=== PATIENT | female | born 1970 | race Caucasian/White ===

== ENCOUNTER 2016-07-29 00:01 | Outpatient (POV) | END 2016-07-29 00:02 | LOC: OUTPT 00:01 | PROVIDERS: ATTEND Otolaryngology | DX: H91.90 Unspecified hearing loss, unspecified ear (principal) | CPT/HCPCS: 92557; 92567 ==

== ENCOUNTER 2017-12-29 09:00 | Outpatient (RCR) ==
--- NOTE | 2017-12-16 12:01 | RS.OPPTEV2 ---
Date of Note: 12/15/17 Visit #: 1 Date of Evaluation: 12/15/17 Payer Source: Insurance Date of Onset/Injury/Change in Status: 10/18/17 Surgery Performed?: No Treatment Diagnosis: sprain of ACL L knee History of Condition/Mechanism of Injury:: pt injured L knee while hauling hay, heard a loud "pop" and states her knee cap slid inward. pt reports she had been wearing a brace, however MD stated to dc use of brace to strengthen quads. 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 She states according to xray/MRI B knees have no cartilage and L ACL is only a thread. MD states if PT does not work may need TKR. Treatment Side (optional): Left *Precautions: n/a Medical History Medical History: Arthritis Surgical History: Hysterectomy, Surgical History Comments:: breast reduction, tonsilectomy, Smoking Status: Former smoker Diagnostic Testing/Imaging:: xray and MRI at MD office. Hx Home Medications: meloxicam Patient's Goals: decrease knee pain, knee not to feel unstable Pain Assessment - Pain Description Pain Location: L knee Pain Description: Aching, Acute Pain Description: hard ache Current Pain Intensity: 3 Functional Outcome Measure LE Functional Scale: 22 (72%) - G Codes & Severity Modifier G Codes & Modifier: n/a Source of G Code score: n/a Observation - Observation Posture: Forward Head, Rounded Shoulders Handedness: Right Girth Measurement Lower: L ankle 26cm, knee 41 cm. R ankle 25cm, knee 41 cm Gait - Gait Pattern General Gait Pattern Observation: Antalgic Gait Gait Comments: pt amb with decreased step length, flexed posture with antalgic gait pt with slight genu valgus B knees. General Range of Motion: BUE WFL's. BLE hip WFL's, ankle WFL's see knee eval Muscle Strength: BUE 5/5. BLE hip flex 4+/5, ankle DF/PF 4+/5 - Left Knee ROM Left Knee Extension: -6 Left Knee Flexion: 110 Knee ROM Limitations: Soft Tissue Tightness, Muscle Weakness, Pain - Right Knee ROM Right Knee Extension: 0 Right Knee Flexion: 116 Knee ROM Limitations: Soft Tissue Tightness, Muscle Weakness - Left Knee Strength Left Knee Extension: 3- Fair- Left Knee Flexion: 3 Fair - Right Knee Strength Right Knee Extension: 3 Fair Right Knee Flexion: 3+ Fair+ - Special Tests Knee Anterior Drawer Test: Positive Left Patella Apprehension Test: Positive Left Palpation Palpation Findings: Tenderness Comments:: tenderness noted at distal patella Sensation - Sensation Right Upper Extremity: Intact/Normal Left Upper Extremity: Intact/Normal Right Lower Extremity: Intact/Normal Left Lower Extremity: Intact/Normal Balance - Sitting Balance Static Sitting Balance: Normal Dynamic Sitting Balance: Normal - Standing Balance Static Standing Balance: Good Dynamic Standing Balance: Good - Heat/Cryotherapy Treatment: Cryotherapy Comments:: L knee Interventions - Exercise/Activities/Manual Therapy Exercises/Activities: pt performed LLE QS, SLR, hip abd/add, LAQ x 10 reps. pt attempted SAQ, however had increased pain with ex. Kinesiotape applied L medial patella at 50% stretch Manual Therapy: n/a HOME EXERCISE PROGRAM: pt given written HEP including AP, QS, SLR, LAQ - Charges Timed Code Treatment Minutes: 52 Total Treatment Time: 61 Procedures billed for this date of service:: elliot hobbs, cold pack EVALUATION COMPLEXITY LEVEL EVALUATION COMPLEXITY LEVEL: HISTORY: Low, EXAM OF BODY SYSTEMS: Medium (ROM, strength, gait, transfer), CLINICAL PRESENTATION: Medium (evolving), CLINICAL DECISION MAKING: Low Assessment Assessment: pt presents with decreased L knee ROM, strength as well as pain L knee. Hypermobility in patella medially. pt with evidence of ACL injury with + ant drawer test. Feel pt would benefit from skilled PT for therex for LE strengthening, ROM, as all as improved gait sequencing. Patient Education: Home Exercise Program, Education of Plan of Care Rehab Potential: Good Short Term Goals Goal #1: Improve L knee ext 0 Goal to be met by: 12/22/17 Goal #2: pt independent with kinesiotaping to L knee for patellar tracking Goal to be met by: 12/22/17 Goal #3: pt with improve strength L knee flex/ext 4/5 Goal to be met by: 12/22/17 Retirement Goals Goal #1: pt with improved L knee ROM WFL's Goal to be met by: 12/31/17 Goal #2: pt with no reports of feeling that knee will "give out" Goal to be met by: 12/31/17 Goal #3: pt rate pain < 2/10 with activity Goal to be met by: 12/31/17 Goal #4: pt amb community distances with improved sequencing Goal to be met by: 12/31/17 Plan - Treatment to be Provided Procedures: Therapeutic Exercises, Therapeutic Activity, Gait Training, Splinting/Taping, Patient Education Modalities: Electrical Stimulation, Ultrasound/Phonophoresis, Cryotherapy, Hot Packs Other:: pt with limited number of visits allowed by insurance, pt afraid of running out of visits for TKR if it comes to that, plan to see pt 2 w2 - Treatment Plan Frequency: 2 X week Duration: 2 weeks ORDER # VISITS AND/OR THROUGH DATE: 12/31/17 - Treatment Code (1) Left knee pain Code(s): M25.562 - PAIN IN LEFT KNEE (3) Muscle weakness Code(s): M62.81 - MUSCLE WEAKNESS (GENERALIZED)
--- NOTE | 2017-12-17 10:08 | RS.OPPTDN ---
Subjective Date of Note: 12/17/17 Visit #: 2 Date of Evaluation: 12/15/17 Payer Source: Insurance Treatment Diagnosis: sprain of ACL L knee Current Subjective/complaints:: Patient reports working on HEP as instructed, but increased left knee pain with SAQ. Reports kinesio-taping seems to have helped with pain. *Precautions: n/a Pain Assessment - Pain Description Pain Location: Left knee, right knee Current Pain Intensity: mild to mod Other Comments regarding Pain:: Pain increases with activity. She also has right knee pain from old injury. Interventions - Exercise/Activities/Manual Therapy Exercises/Activities: Quad sets and ankle pumps. Red theraband for resistive hip abd and hip add with knee in full extension. Red theraband for resistive left ankle df. SLR and SLR/VMO. Isometric hip add in hook-lying and isometric ankle inversion with knees in extension, both with small ball. Advised patient to hold SAQ. Standing resisted hip add and hip abd with resisted red theraband. All 2s/10reps each. Kinesiotape applied by PT to left medial patella at approx 80% stretch. Patient education of dx, joint mechanics, safety, HEP and need to perform bilaterally. Patient given copy of HEP and red theraband. Total minutes of Exercise: 48mins Manual Therapy: n/a HOME EXERCISE PROGRAM: pt given written HEP including AP, QS, SLR, LAQ. Hold LAQ. SLR/VMO. Red theraband for hip add and abd in standing. Isometric hip add and isometric ankle inversion. - Objective Findings Observations,measurements,etc.: Left knee extension to neurtal with gentle stretch, flexion to approx 120 degrees. - Charges Timed Code Treatment Minutes: 48mins Total Treatment Time: 48mins Procedures billed for this date of service:: EX3 Assessment: Patient motivated to progress with exercise. Patient Education: Education of diagnosis, Body/Joint mechanics, Home Exercise Program, Home Safety, Activity Modification Patient demonstrates compliance with HEP?: Yes Short Term Goals Goal #1: Improve L knee ext 0 Goal to be met by: 12/22/17 Progress towards Goal:: Progressing Comments:: Left knee extension to neutral with gentle stretch. 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
--- NOTE | 2017-12-22 11:05 | RS.OPPTDN ---
Subjective Date of Note: 12/22/17 Visit #: 3 Date of Evaluation: 12/15/17 Payer Source: Insurance Treatment Diagnosis: sprain of ACL L knee Current Subjective/complaints:: Patient reports some decrease in left knee pain. States she is working on HEP and using kinesio-tape. Reports a reduction in pain with SAQ in department. *Precautions: n/a Pain Assessment - Pain Description Pain Location: Left knee joint Current Pain Intensity: mild Worst Pain Intensity: increases to mod with activity Other Comments regarding Pain:: Reports only mild discomfort at the distal left patella tendon following 10reps of SAQ. Interventions - Exercise/Activities/Manual Therapy Exercises/Activities: Assisted stretching of the hamstrings and heel cords. Quad sets and ankle pumps. Started hamstring sets. Red theraband for resistive hip abd and hip add with knee in full extension. Green theraband for resistive left ankle df and hamstring curls. Added 2# to SLR 3s/10reps. SLR/VMO and SLR with IR for vastus lateralis. Isometric hip add in hook-lying and isometric ankle inversion with knees in extension, both with small ball. Advised patient to hold SAQ. Patient given green theraband for progression of standing resisted hip add and hip abd at home. Continued patient education of dx, joint mechanics , safety, and HEP. Total minutes of Exercise: 32mins Manual Therapy: n/a HOME EXERCISE PROGRAM: pt given written HEP including AP, QS, SLR, LAQ. Hold LAQ. SLR/VMO. Red theraband for hip add and abd in standing. Isometric hip add and isometric ankle inversion. - Charges Timed Code Treatment Minutes: 32mins Total Treatment Time: 35mins Procedures billed for this date of service:: EX2 Assessment: Patient responding with reports of reduction in left knee pain. Patient appears to be consistently working on HEP and using kinesio-tape. Patient Education: Education of diagnosis, Body/Joint mechanics, Home Exercise Program Comments: Patient education of joint mechanics and safety with daily and recreational activities. Patient demonstrates compliance with HEP?: Yes Short Term Goals Goal #1: Improve L knee ext 0 Goal to be met by: 12/22/17 Progress towards Goal:: Met Goal #2: pt independent with kinesiotaping to L knee for patellar tracking Goal to be met by: 12/22/17 Progress towards Goal:: Partially Met Goal #3: pt with improve strength L knee flex/ext 4/5 Goal to be met by: 12/22/17 Progress towards Goal:: Partially Met Comments:: Left knee extension 4/5 consistently Residential Goals Goal #1: pt with improved L knee ROM WFL's Goal to be met by: 12/31/17 Progress towards goal: Met Goal #2: pt with no reports of feeling that knee will "give out" Goal to be met by: 12/31/17 Progress towards goal: Progressing Goal #3: pt rate pain < 2/10 with activity Goal to be met by: 12/31/17 Progress towards goal: Progressing Goal #4: pt amb community distances with improved sequencing Goal to be met by: 12/31/17 Progress towards goal: Progressing Plan PLAN OF CARE EXPIRES ON:: 12/31/17 ORDER # VISITS AND/OR THROUGH DATE: 12/31/17 PLAN: Progress strengthening and joint stability exercise to increase patients functional activity level.
--- NOTE | 2017-12-25 15:38 | RS.OPPTDN ---
Subjective Date of Note: 12/25/17 Visit #: 4 Date of Evaluation: 12/15/17 Payer Source: Insurance Treatment Diagnosis: sprain of ACL L knee Current Subjective/complaints:: Patient reports improvement in left knee pain and stability. She still cannot squat or kneel on left knee due to pain. She reports no increased pain with resistive SAQ today. *Precautions: n/a Pain Assessment - Pain Description Pain Location: Left knee Pain Description: Tightness, Aching Current Pain Intensity: mild to mod Interventions - Exercise/Activities/Manual Therapy Exercises/Activities: Assisted stretching of the hamstrings and heel cords. Quad sets and hamstring sets. Red theraband for resistive hip abd and hip add with knee in full extension. Green theraband for resistive left ankle df and hamstring curls. Performs SAQ with 3#, 2s/10reps and no increased pain. Added 2 # to SLR, SLR/VMO, and SLR with IR for vastus lateralis, 4s/5reps each. Isometric hip add in hook-lying and isometric ankle inversion with knees in extension, both with small ball. Continued patient education of dx, joint mechanics, safety, and HEP. Patient education on postions to relieve pain with squatting at work, and to use foam pad and stool for pressure relief. Total minutes of Exercise: 42mins Manual Therapy: n/a HOME EXERCISE PROGRAM: pt given written HEP including AP, QS, SLR, LAQ. Hold LAQ. SLR/VMO. Red theraband for hip add and abd in standing. Isometric hip add and isometric ankle inversion. - Charges Timed Code Treatment Minutes: 42mins Total Treatment Time: 44mins Procedures billed for this date of service:: EX3 Assessment: Patient continues to report improvement in pain and consistency in HEP. Patient Education: Body/Joint mechanics, Home Exercise Program, Home Safety, Activity Modification Patient demonstrates compliance with HEP?: Yes Short Term Goals Goal #1: Improve L knee ext 0 Goal to be met by: 12/22/17 Progress towards Goal:: Met Goal #2: pt independent with kinesiotaping to L knee for patellar tracking Goal to be met by: 12/22/17 Progress towards Goal:: Met Goal #3: pt with improve strength L knee flex/ext 4/5 Goal to be met by: 12/22/17 Progress towards Goal:: Partially Met Valve Repairer Reclamation Goals Goal #1: pt with improved L knee ROM WFL's Goal to be met by: 12/31/17 Progress towards goal: Met Goal #2: pt with no reports of feeling that knee will "give out" Goal to be met by: 12/31/17 Progress towards goal: Progressing Goal #3: pt rate pain < 2/10 with activity Goal to be met by: 12/31/17 Progress towards goal: Progressing Goal #4: pt amb community distances with improved sequencing Goal to be met by: 12/31/17 Progress towards goal: Progressing Plan PLAN OF CARE EXPIRES ON:: 12/31/17 ORDER # VISITS AND/OR THROUGH DATE: 12/31/17 PLAN: Continue next week to progress strengthening and stability exercise to reduce pain and increase patients ability to perform functional activities.
--- NOTE | 2017-12-29 10:20 | RS.OPPTDN ---
Subjective Date of Note: 12/29/17 Visit #: 5 Date of Evaluation: 12/15/17 Payer Source: Insurance Treatment Diagnosis: sprain of ACL L knee Current Subjective/complaints:: Patient reports left LE is getting stronger. She states she continues to have left knee pain with squatting, which she has to do at work. *Precautions: n/a Pain Assessment - Pain Description Pain Location: Left knee Current Pain Intensity: mod to high with squatting Interventions - Exercise/Activities/Manual Therapy Exercises/Activities: Assisted stretching of the hamstrings and heel cords, bilaterally. Assessed quad sets and hamstring sets, and patient demos a muscle contractions. 1 1/2# for resistive SLR, SLR/VMO, and SLR with hip IR, 3s/5reps each. Increased to green theraband for resistive hip abd and hip add with knee in full extension. Green theraband for resistive left ankle df and hamstring curls. In sitting, LAQ with 3# and LAQ with ball between feet, 2s/10reps each with mild increased pain. Isometric hip add in hook-lying and isometric ankle inversion with knees in extension, both with small ball. Manual distraction of the left LE, with patient reporting a reduction in pressure of knee joint. Continued patient education of dx, joint mechanics, safety, and HEP. Total minutes of Exercise: 30mins Manual Therapy: n/a HOME EXERCISE PROGRAM: pt given written HEP including AP, QS, SLR, LAQ. Hold LAQ. SLR/VMO. Red theraband for hip add and abd in standing. Isometric hip add and isometric ankle inversion. - Objective Findings Observations,measurements,etc.: Demos full extension of left knee and flexion to 125 degrees. Able to perform sets of 10reps of SLR with small weight today. - Charges Timed Code Treatment Minutes: 30mins Total Treatment Time: 30mins Procedures billed for this date of service:: EX2 Assessment: Patient demo good muscle contractions and SLR with small weights. She will need to continue strengthening to promote stability to increase ability with functional activities at work. Patient Education: Home Exercise Program Patient demonstrates compliance with HEP?: Yes Short Term Goals Goal #1: Improve L knee ext 0 Goal to be met by: 12/22/17 Progress towards Goal:: Met Goal #2: pt independent with kinesiotaping to L knee for patellar tracking Goal to be met by: 12/22/17 Progress towards Goal:: Met Goal #3: pt with improve strength L knee flex/ext 4/5 Goal to be met by: 12/22/17 Progress towards Goal:: Met Manager Inventory Control Goals Goal #1: pt with improved L knee ROM WFL's Goal to be met by: 12/31/17 Progress towards goal: Met Goal #2: pt with no reports of feeling that knee will "give out" Goal to be met by: 12/31/17 Progress towards goal: Progressing Goal #3: pt rate pain < 2/10 with activity Goal to be met by: 12/31/17 Progress towards goal: Progressing Goal #4: pt amb community distances with improved sequencing Goal to be met by: 12/31/17 Progress towards goal: Partially Met Plan PLAN OF CARE EXPIRES ON:: 12/31/17 ORDER # VISITS AND/OR THROUGH DATE: 12/31/17 PLAN: Progress strengthening exercise to reduce pain and increase functional gait and activity level.
== END 2018-01-01 23:59 ==
PROVIDERS: ATTEND Orthopaedic Surgery
DX: S83.512D Sprain of anterior cruciate ligament of left knee, subsequent encounter (principal)

== ENCOUNTER 2018-01-08 08:16 | Outpatient (RCR) ==
--- NOTE | 2018-01-08 14:54 | RS.OPPTDN ---
Subjective Date of Note: 01/08/18 Visit #: 6 Date of Evaluation: 12/15/17 Payer Source: Insurance Treatment Diagnosis: sprain of ACL L knee Current Subjective/complaints:: Patient reports left LE is stronger, but she continues to have pain. Reports bilateral knee pain that limits her mobility, as well as squatting activities at work. Patient in agreement to stop at this time as she cannot tolerate PRE's with ROM exercises, but can continue all strengthening in neutral knee position. *Precautions: n/a Pain Assessment - Pain Description Pain Location: bilateral knee pain, left > right Pain Description: Sharp, Aching Current Pain Intensity: moderate with end range flexion and with some resistive exercise Interventions - Exercise/Activities/Manual Therapy Exercises/Activities: Assisted stretching of the hamstrings and heel cords, bilaterally. 2# for resistive SLR, SLR/VMO, 2s/10reps each, and SLR with hip IR , 10reps each. Green theraband for resistive hip abd and hip add with knee in full extension. Green theraband for resistive left ankle df and hamstring curls. In sitting, LAQ with 4# to assess left knee pain. Then LAQ with ball between feet, 2s/10reps each with mild increased pain. Isometric hip add in hook -lying and isometric ankle inversion with knees in extension, both with small ball. Finalized patient education of dx, joint mechanics, safety, and HEP. Total minutes of Exercise: 35mins Manual Therapy: n/a HOME EXERCISE PROGRAM: pt given written HEP including AP, QS, SLR, LAQ. Hold LAQ. SLR/VMO. Red theraband for hip add and abd in standing. Isometric hip add and isometric ankle inversion. - Charges Timed Code Treatment Minutes: 35mins Total Treatment Time: 35mins Procedures billed for this date of service:: EX2 Assessment: Patient has reported progress with strength in the bilateral knees since starting therapy. States she is consistently working on HEP. Squatting continues to be painful and limit her ability at work. Patient has met 4 of 7 treatment goals. She should benefit from continuing HEP with knee in neutral position to avoid flair up of pain and swelling. Patient Education: Education of diagnosis, Body/Joint mechanics, Home Exercise Program, Activity Modification Comments: Finalized patient education of joint mechanics and HEP. Patient given additional therabands for progression with HEP. Patient demonstrates compliance with HEP?: Yes Short Term Goals Goal #1: Improve L knee ext 0 Goal to be met by: 12/22/17 Progress towards Goal:: Met Goal #2: pt independent with kinesiotaping to L knee for patellar tracking Goal to be met by: 12/22/17 Progress towards Goal:: Met Goal #3: pt with improve strength L knee flex/ext 4/5 Goal to be met by: 12/22/17 Progress towards Goal:: Met Correction Goals Goal #1: pt with improved L knee ROM WFL's Goal to be met by: 12/31/17 Progress towards goal: Met Goal #2: pt with no reports of feeling that knee will "give out" Goal to be met by: 12/31/17 Progress towards goal: Partially Met Goal #3: pt rate pain < 2/10 with activity Goal to be met by: 12/31/17 Progress towards goal: Progressing Goal #4: pt amb community distances with improved sequencing Goal to be met by: 12/31/17 Progress towards goal: Partially Met Plan PLAN OF CARE EXPIRES ON:: 01/31/18 ORDER # VISITS AND/OR THROUGH DATE: 12/31/17 PLAN: Discharge with HEP.
--- NOTE | 2018-01-18 11:14 | RS.QUICKDC ---
Discharge from PT Date of Discharge: 01/18/18 Number of Visits: 6 Reason for Discharge: Patient attended 6 sessions and progressed with stretching and strengthening exercise. She was independent with kinesio-taping. She demonstrated increased strength in the LE's and met 5 of 7 treatment goals. Discharged with HEP.
== END 2018-01-31 23:59 ==
PROVIDERS: ATTEND Orthopaedic Surgery
DX: S83.512D Sprain of anterior cruciate ligament of left knee, subsequent encounter (principal)

== ENCOUNTER 2018-03-01 08:00 | Outpatient (RCR) ==
--- NOTE | 2018-02-09 09:56 | RS.OPPTEV2 ---
Date of Note: 02/08/18 Visit #: 1 Date of Evaluation: 02/08/18 Payer Source: Insurance Date of Onset/Injury/Change in Status: 02/05/18 Surgery Performed?: Yes (ACL reconstruction) Date of Procedure: 02/05/18 Treatment Diagnosis: Rupture of anterior cruciate ligament of L knee History of Condition/Mechanism of Injury:: pt reports that in 10/2017 she injured her L knee while hauling hay, she her a loud pop. pt underwent L ACL reconstruction on 02/05/18. 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 Functional Limitations: Lifting, Standing, Bending, Squatting, Ambulation Current Subjective/complaints:: pt states she has had difficulty using crutches at home and until today was having to push her on a rollator rwx into bathroom because she was unable to amb with crutches. pt states she is now on a muscle relaxer and is hopeful that it will help to decrease spasms she was having while trying to stand. Treatment Side (optional): Left *Precautions: n/a Medical History Medical History: Arthritis Surgical History: Hysterectomy, Surgical History Comments:: breast reduction, tonsilectomy, Smoking Status: Former smoker Hx Home Medications: muscle relaxer, oxycodone, nausea meds, ibuprofen Patient's Goals: return to work and walk with less pain Pain Assessment - Pain Description Pain Location: L knee Pain Description: Sharp, Aching Current Pain Intensity: 6-7/10 Functional Outcome Measure LE Functional Scale: 4 (95%) - G Codes & Severity Modifier G Codes & Modifier: n/a Source of G Code score: n/a Observation - Observation Inspection: pt with dressing and brenda wrap to L knee as well as knee immobilizer brace Posture: Forward Head, Rounded Shoulders Handedness: Right Girth Measurement Lower: L ankle 26cm. R ankle 23.8cm. Didn't measure knee due to bulky dressing in place Gait - Gait Pattern General Gait Pattern Observation: Antalgic Gait, Decrease Weight Bear (L), Decrease Stride Lngth (L) Gait Comments: pt amb with rwx with CGA in dept. pt WBAT LLE unable to tolerate weight bearing due to pain. pt with improved safety with rwx. Discussed with patient getting a walker to use at home due to difficulty with crutches. pt states she has a friend who has a walker and will let her use it. General Range of Motion: BUE WFL's. RLE WFL's Muscle Strength: BUE 5/5. RLE 5/5 Knee ROM: Right WFL's Knee Muscle Strength: Right WFL's - Left Knee ROM Left Knee Extension: -16 Left Knee Flexion: 45 (AAROM) Knee ROM Limitations: Soft Tissue Tightness, Muscle Weakness, Pain - Left Knee Strength Left Knee Extension: 2+ Poor+ Left Knee Flexion: 2+ Poor+ Palpation Palpation Findings: Tenderness Comments:: L knee Sensation - Sensation Right Upper Extremity: Intact/Normal Left Upper Extremity: Intact/Normal Right Lower Extremity: Intact/Normal Left Lower Extremity: Intact/Normal Balance - Sitting Balance Static Sitting Balance: Normal Dynamic Sitting Balance: Normal - Standing Balance Static Standing Balance: Fair Dynamic Standing Balance: Poor - Comments Balance Assessment Comments: Decreased dyn stand balance due to unable to tolerate weight bearing on LLE. - Heat/Cryotherapy Treatment: Cryotherapy Comments:: L knee Interventions - Exercise/Activities/Manual Therapy Exercises/Activities: pt performed QS x 5, SLR and hip abd/add with assist. Manual Therapy: n/a HOME EXERCISE PROGRAM: pt given written HEP including QS, SLR, hip abd/add, towel stretch, hamstring stretch - Charges Timed Code Treatment Minutes: 49 Total Treatment Time: 51 Procedures billed for this date of service:: eval low, ex, cold pack EVALUATION COMPLEXITY LEVEL EVALUATION COMPLEXITY LEVEL: HISTORY: Low (OA), EXAM OF BODY SYSTEMS: Medium ( pain, edema, ROM, strength, balance, gait), CLINICAL PRESENTATION: Medium ( evolving), CLINICAL DECISION MAKING: Medium Assessment Assessment: pt presents s/p L ACL reconstruction 02/05/18. pt presents with pain , decreased ROM, strength, as well as difficulty tolerating weight bearing on LLE. Patient Education: Home Exercise Program, Education of Plan of Care Rehab Potential: Good Short Term Goals Goal #1: Improve L knee ROM flex 90 ext -8 Goal to be met by: 02/22/18 Goal #2: pt independent with initial HEP Goal to be met by: 02/22/18 Goal #3: Improve strength LLE knee flex/ext 3-/5 Goal to be met by: 02/22/18 Goal #4: Report decreased pain L knee <5/10 Goal to be met by: 02/22/18 Snf Goals Goal #1: L knee ROM flex 100 ext 0 Goal to be met by: 03/08/18 Goal #2: pt amb community distances with AAD with no LOB WBAT LLE Goal to be met by: 03/08/18 Goal #3: pt rate pain < 2/10 with activity Goal to be met by: 03/08/18 Goal #4: pt report ability to perform daily household activities independently Goal to be met by: 03/08/18 Plan - Treatment to be Provided Procedures: Therapeutic Exercises, Therapeutic Activity, Gait Training, Patient Education Modalities: Electrical Stimulation, Ultrasound/Phonophoresis, Cryotherapy, Hot Packs Other:: pt only with 18 visits left allowed by insurance. - Treatment Plan Frequency: 2-3x a week Duration: 4 weeks ORDER # VISITS AND/OR THROUGH DATE: 03/08/18 - Treatment Code (1) Rupture of anterior cruciate ligament of left knee Code(s): S83.512A - SPRAIN OF ANTERIOR CRUCIATE LIGAMENT OF LEFT KNEE, INIT Qualifiers: Encounter type: initial encounter Qualified Code(s): S83.512A - Sprain of anterior cruciate ligament of left knee, initial encounter (3) Left knee pain Code(s): M25.562 - PAIN IN LEFT KNEE Qualifiers: Chronicity: acute Qualified Code(s): M25.562 - Pain in left knee (4) Muscle weakness Code(s): M62.81 - MUSCLE WEAKNESS (GENERALIZED)
--- NOTE | 2018-02-11 16:15 | RS.OPPTDN ---
Subjective Date of Note: 02/10/18 Visit #: 2 Number of visits approved by Insurance: NA Date of Evaluation: 02/08/18 Payer Source: Insurance Treatment Diagnosis: Rupture of anterior cruciate ligament of L knee Current Subjective/complaints:: Patient reports she is walking much better since using at walker. States she is consistently taking pain medication and using ice to reduce pain and swelling. *Precautions: n/a Pain Assessment - Pain Description Pain Location: left knee Pain Description: Aching Current Pain Intensity: moderate - Treatment Modality: Electrical Stim Unattended Parameters/Method Applied: [id number] HVGC to 225-240p.v. with 4 large pads cross current to the left knee with CP following exercise. Patient Position: Supine - Heat/Cryotherapy Treatment: Cryotherapy (with Estim ) Interventions - Exercise/Activities/Manual Therapy Exercises/Activities: Quad sets and ham sets. Assisted left knee flexion/ext, ankle df/pf. Assisted SLR, hip abd. In sitting, assisted limited left knee flexion/ext and df/pf. Assisted heel slides. Discussed dx, joint mechanics, safety precautions, and HEP. Total minutes of Exercise: 22mins Manual Therapy: n/a HOME EXERCISE PROGRAM: pt given written HEP including QS, SLR, hip abd/add, towel stretch, hamstring stretch - Charges Timed Code Treatment Minutes: 22mins Total Treatment Time: 42mins Procedures billed for this date of service:: EX, CP, Estim unattended Assessment: Patient with pain and swelling in the left knee limiting functional mobility. She demos safe gait with standard walker. Patient Education: Education of diagnosis, Body/Joint mechanics, Home Exercise Program, Home Safety, Activity Modification Comments: Patient edcuation of dx, joint mechanics, safety precautions, and HEP. Patient demonstrates compliance with HEP?: Yes Short Term Goals Goal #1: Improve L knee ROM flex 90 ext -8 Goal to be met by: 02/22/18 Progress towards Goal:: Progressing Goal #2: pt independent with initial HEP Goal to be met by: 02/22/18 Progress towards Goal:: Progressing Goal #3: Improve strength LLE knee flex/ext 3-/5 Goal to be met by: 02/22/18 Goal #4: Report decreased pain L knee <5/10 Goal to be met by: 02/22/18 Half-Way Goals Goal #1: L knee ROM flex 100 ext 0 Goal to be met by: 03/08/18 Goal #2: pt amb community distances with AAD with no LOB WBAT LLE Goal to be met by: 03/08/18 Progress towards goal: Progressing Goal #3: pt rate pain < 2/10 with activity Goal to be met by: 03/08/18 Goal #4: pt report ability to perform daily household activities independently Goal to be met by: 03/08/18 Plan Dates of Half-Way Goals: 03/08/18 Expiration date of current Insurance Approval:: 03/08/18 PLAN: Continue modalities and progress with gentle exercise per protocol.
--- NOTE | 2018-02-12 15:50 | RS.OPPTDN ---
Subjective Date of Note: 02/12/18 Visit #: 3 Number of visits approved by Insurance: NA Date of Evaluation: 02/08/18 Payer Source: Insurance Treatment Diagnosis: Rupture of anterior cruciate ligament of L knee Current Subjective/complaints:: Patient reports having a flair-up of pain following last session. Reports she is doing better with ambulation with RW. *Precautions: n/a Pain Assessment - Pain Description Pain Location: left knee Pain Description: Tightness, Aching, Acute Current Pain Intensity: moderate - Treatment Modality: Electrical Stim Unattended Parameters/Method Applied: [id number] HVGC to 220p.v. 4 large pads cross current to the left knee with CP following EX. Patient Position: Supine - Heat/Cryotherapy Treatment: Cryotherapy ([id number] with Estim ) Interventions - Exercise/Activities/Manual Therapy Exercises/Activities: Quad sets, ham sets, ankle pumps. Assisted left knee flexion/ext, ankle df/pf. Assisted SLR, hip abd, 3s/5reps each. Assisted limited left heel slides. Isometric hip add and isometric ankle inversion with ball, 2s/10reps each. Yellow theraband for resisted ankle df, inversion, and eversion, 2s/10reps each. Patient education of safety precautions and HEP. Directional massage to the lower leg to reduce swelling. Total minutes of Exercise: 24mins Manual Therapy: n/a HOME EXERCISE PROGRAM: pt given written HEP including QS, SLR, hip abd/add, towel stretch, hamstring stretch. Isometric hip add and isometric ankle inversion, both with ball. - Charges Timed Code Treatment Minutes: 24mins Total Treatment Time: 44mins Procedures billed for this date of service:: EX2, CP, Estim unattended Assessment: Patient continues to have increased pain and swelling. She demos a good gait pattern. Patient Education: Home Exercise Program, Home Safety Patient demonstrates compliance with HEP?: Yes Short Term Goals Goal #1: Improve L knee ROM flex 90 ext -8 Goal to be met by: 02/22/18 Progress towards Goal:: Progressing Goal #2: pt independent with initial HEP Goal to be met by: 02/22/18 Progress towards Goal:: Progressing Goal #3: Improve strength LLE knee flex/ext 3-/5 Goal to be met by: 02/22/18 Goal #4: Report decreased pain L knee <5/10 Goal to be met by: 02/22/18 Senior [employer]os Developer Goals Goal #1: L knee ROM flex 100 ext 0 Goal to be met by: 03/08/18 Goal #2: pt amb community distances with AAD with no LOB WBAT LLE Goal to be met by: 03/08/18 Progress towards goal: Met Goal #3: pt rate pain < 2/10 with activity Goal to be met by: 03/08/18 Goal #4: pt report ability to perform daily household activities independently Goal to be met by: 03/08/18 Plan Dates of Senior [employer]os Developer Goals: 03/08/18 Expiration date of current Insurance Approval:: NA PLAN: Continue and progress ROM and strengthening of the left knee per protocol.
--- NOTE | 2018-02-15 16:24 | RS.OPPTDN ---
Subjective Date of Note: 02/15/18 Visit #: 4 Number of visits approved by Insurance: 18 Date of Evaluation: 02/08/18 Payer Source: Insurance Treatment Diagnosis: Rupture of anterior cruciate ligament of L knee Current Subjective/complaints:: Patient reports she is walking better and swelling is slowly going down. *Precautions: n/a Pain Assessment - Pain Description Pain Location: left knee Pain Description: Tightness Current Pain Intensity: mild - Treatment Modality: Electrical Stim Unattended Parameters/Method Applied: [id number] HVGC to 220p.v. with 4 large pads to the left knee cross current with CP following EX. Patient Position: Supine - Heat/Cryotherapy Treatment: Cryotherapy (with Estim ) Interventions - Exercise/Activities/Manual Therapy Exercises/Activities: Quad sets, ham sets, ankle pumps. Assisted left knee flexion/extension. Passive extension stretch with left ankle on ball. Assisted SLR, hip abd, increased to 4s/5reps each. Assisted left heel slides. Isometric hip add and isometric ankle inversion with ball, 2s/10reps each. Increased to green theraband for resisted ankle df, and red theraband for inversion, and eversion, 2s/10reps each. In sitting assisted left knee flexion, gently progressed to 90 degrees. Directional massage to the lower leg to reduce swelling. Total minutes of Exercise: 25mins Manual Therapy: n/a HOME EXERCISE PROGRAM: pt given written HEP including QS, SLR, hip abd/add, towel stretch, hamstring stretch. Isometric hip add and isometric ankle inversion, both with ball. - Charges Timed Code Treatment Minutes: 25mins Total Treatment Time: 45mins Procedures billed for this date of service:: EX2, CP, Estim unattended Assessment: Patient progressing with SLR and increased flexion of the left knee. Patient Education: Home Exercise Program, Home Safety Patient demonstrates compliance with HEP?: Yes Short Term Goals Goal #1: Improve L knee ROM flex 90 ext -8 Goal to be met by: 02/22/18 Progress towards Goal:: Met Goal #2: pt independent with initial HEP Goal to be met by: 02/22/18 Progress towards Goal:: Partially Met Goal #3: Improve strength LLE knee flex/ext 3-/5 Goal to be met by: 02/22/18 Goal #4: Report decreased pain L knee <5/10 Goal to be met by: 02/22/18 Jail Goals Goal #1: L knee ROM flex 100 ext 0 Goal to be met by: 03/08/18 Goal #2: pt amb community distances with AAD with no LOB WBAT LLE Goal to be met by: 03/08/18 Progress towards goal: Met Goal #3: pt rate pain < 2/10 with activity Goal to be met by: 03/08/18 Goal #4: pt report ability to perform daily household activities independently Goal to be met by: 03/08/18 Plan Dates of [employer] Goals: 03/08/18 Expiration date of current Insurance Approval:: 03/08/18 PLAN: Continue and progress per protocol.
--- NOTE | 2018-02-16 10:40 | RS.OPPTDN ---
Subjective Date of Note: 02/16/18 Visit #: 5 Number of visits approved by Insurance: 18 Date of Evaluation: 02/08/18 Payer Source: Insurance Treatment Diagnosis: Rupture of anterior cruciate ligament of L knee Current Subjective/complaints:: Patient reports continued swelling left LE, but doing better with exercises. States she is going for a follow-up today. *Precautions: n/a Pain Assessment - Pain Description Pain Location: left knee Current Pain Intensity: discomfort at end range - Treatment Modality: Electrical Stim Unattended Parameters/Method Applied: [id number] HVGC to 225p.v. with 4 large pads cross current to the left knee with CP following exercise. Patient in supine with left LE elevated. Patient Position: Supine - Heat/Cryotherapy Treatment: Cryotherapy (with Estim) Interventions - Exercise/Activities/Manual Therapy Exercises/Activities: Quad sets, ham sets, ankle pumps. Assisted left knee flexion/extension. Passive extension stretch with left ankle on ball. Isometric hip extension with left ankle on ball. SLR and hip abd, 2s/10reps each. Began SLR/VMO 4s/5reps each. Assisted left heel slides. Isometric hip add and isometric ankle inversion with ball, 2s/10reps each. Green theraband for resisted ankle df, and red theraband for inversion, and eversion, 2s/10reps each. Began yellow theraband for short range hip abd and add, 2s/10reps each. In sitting assisted left knee flexion, and began yellow theraband resisted short ham curls. Gentle assisted and active left knee flexion to 90 degrees. Total minutes of Exercise: 24mins Manual Therapy: n/a HOME EXERCISE PROGRAM: pt given written HEP including QS, SLR, hip abd/add, towel stretch, hamstring stretch. Isometric hip add and isometric ankle inversion, both with ball. - Objective Findings Observations,measurements,etc.: Left knee flexion 90 degrees, extension to neutral. Girth measurements: Left Superior pole of the patella 47.7 cm (Right 46.3 cm). Left mid patella 44.4 cm (Right 42.3 cm) - Charges Timed Code Treatment Minutes: 24mins Total Treatment Time: 44mins Procedures billed for this date of service:: EX2, CP, Estim unattended Assessment: Patient progressed to good active ROM of left knee at this point of protocol. She continues to have swelling, but that is also progressing. Patient attentive to all instruction and appears to be following safety precautions and HEP. Patient Education: Body/Joint mechanics, Home Exercise Program, Home Safety, Activity Modification Patient demonstrates compliance with HEP?: Yes Short Term Goals Goal #1: Improve L knee ROM flex 90 ext -8 Goal to be met by: 02/22/18 Progress towards Goal:: Met Goal #2: pt independent with initial HEP Goal to be met by: 02/22/18 Progress towards Goal:: Met Goal #3: Improve strength LLE knee flex/ext 3-/5 Goal to be met by: 02/22/18 Goal #4: Report decreased pain L knee <5/10 Goal to be met by: 02/22/18 Progress towards Goal:: Partially Met [facility] Goals Goal #1: L knee ROM flex 100 ext 0 Goal to be met by: 03/08/18 Progress towards goal: Progressing Goal #2: pt amb community distances with AAD with no LOB WBAT LLE Goal to be met by: 03/08/18 Progress towards goal: Met Goal #3: pt rate pain < 2/10 with activity Goal to be met by: 03/08/18 Goal #4: pt report ability to perform daily household activities independently Goal to be met by: 03/08/18 Plan Dates of It Generalist Goals: 03/08/18 Expiration date of current Insurance Approval:: 03/08/18 PLAN: Progress with ACL protocol to increase strength, ROM, and functional mobility.
--- NOTE | 2018-02-19 15:49 | RS.OPPTDN ---
Subjective Date of Note: 02/19/18 Visit #: 6 Number of visits approved by Insurance: 18 Date of Evaluation: 02/08/18 Payer Source: Insurance Treatment Diagnosis: Rupture of anterior cruciate ligament of L knee Current Subjective/complaints:: pt states she is a little stiff today, thinks she may have over done it yesterday. She states MD did not remove henna yesterday, she has to go back to [facility] next Thursday. *Precautions: n/a Pain Assessment - Pain Description Pain Location: L knee Pain Description: Aching Current Pain Intensity: 4 - Treatment Modality: Electrical Stim Unattended Parameters/Method Applied: high volt with 4 pads loly cross at 185p.v. x 20 mins Treatment Area: L knee Patient Position: Supine - Heat/Cryotherapy Treatment: Cryotherapy Comments:: L knee Interventions - Exercise/Activities/Manual Therapy Exercises/Activities: pt performed L knee QS, ham sets, assisted L knee flex/ext , passive ext stretch with L ankle on the ball. pt performed isometric hip ext with L ankle on ball, SLR and hip abd/add, SLR/VMO 2 sets of 10 reps, isometric hip add with ankle inversion with ball 2 sets of 10 reps, gentle L knee flex/ext in sitting. pt requries verbal and tactile cues for ex technique. Total minutes of Exercise: 27 Manual Therapy: n/a HOME EXERCISE PROGRAM: pt given written HEP including QS, SLR, hip abd/add, towel stretch, hamstring stretch. Isometric hip add and isometric ankle inversion, both with ball. - Charges Timed Code Treatment Minutes: 39 Total Treatment Time: 58 Procedures billed for this date of service:: ex x 2, estim unattended with cold pack Assessment: pt progressing with ex and improved strength and ROM. pt continues with pitting edema L knee but much improved from eval. Patient Education: Home Exercise Program, Education of Plan of Care Patient demonstrates compliance with HEP?: Yes Short Term Goals Goal #1: Improve L knee ROM flex 90 ext -8 Goal to be met by: 02/22/18 Progress towards Goal:: Met Goal #2: pt independent with initial HEP Goal to be met by: 02/22/18 Progress towards Goal:: Met Goal #3: Improve strength LLE knee flex/ext 3-/5 Goal to be met by: 02/22/18 Progress towards Goal:: Progressing Goal #4: Report decreased pain L knee <5/10 Goal to be met by: 02/22/18 Progress towards Goal:: Progressing [facility] Goals Goal #1: L knee ROM flex 100 ext 0 Goal to be met by: 03/08/18 Progress towards goal: Progressing Goal #2: pt amb community distances with AAD with no LOB WBAT LLE Goal to be met by: 03/08/18 Progress towards goal: Met Goal #3: pt rate pain < 2/10 with activity Goal to be met by: 03/08/18 Goal #4: pt report ability to perform daily household activities independently Goal to be met by: 03/08/18 Plan Dates of [employer] Goals: 03/08/18 Expiration date of current Insurance Approval:: n/a PLAN: continue to progress with strengthening, and ROM ex as well as modalities to decrease pain and edema
--- NOTE | 2018-02-22 11:34 | RS.OPPTDN ---
Subjective Date of Note: 02/22/18 Visit #: 7 Number of visits approved by Insurance: 18 Date of Evaluation: 02/08/18 Payer Source: Insurance Treatment Diagnosis: Rupture of anterior cruciate ligament of L knee Current Subjective/complaints:: pt states she had increased swelling and pain this weekend. States she tried to rest and keep LE elevated on Thursday with ice pack. She reports she is going back to [facility] to have henna removed tomorrow. *Precautions: n/a Pain Assessment - Pain Description Pain Location: L knee Current Pain Intensity: 4 - Treatment Modality: Electrical Stim Unattended Parameters/Method Applied: high volt with 4 leads loly cross x 20 mins at 220p.v. Treatment Area: L knee Patient Position: Supine - Heat/Cryotherapy Treatment: Cryotherapy Comments:: L knee Interventions - Exercise/Activities/Manual Therapy Exercises/Activities: pt performed L LE AP x 2 sets of 10, QS, ham sets x 15 reps assisted L knee flex/ext, passive ext stretch with L ankle on the ball. pt performed SLR, hip abd/add, SLR/VMO 2 sets of 10 reps, isometric hip add with ankle inversion with ball 2 sets of 10 reps, gentle L knee flex/ext in sitting. pt requries verbal cues for technique. pt requires tactile cues to initiate QS due to muscle spasms. Total minutes of Exercise: 34 Manual Therapy: n/a HOME EXERCISE PROGRAM: pt given written HEP including QS, SLR, hip abd/add, towel stretch, hamstring stretch. Isometric hip add and isometric ankle inversion, both with ball. - Charges Timed Code Treatment Minutes: 46 Total Treatment Time: 62 Procedures billed for this date of service:: ex x 2, estim unattended, cold pack Assessment: pt progressing with improved ROM L knee flex 91, ext -5. pt also progressing with improved strength and gait safety. Patient Education: Home Exercise Program, Education of Plan of Care Patient demonstrates compliance with HEP?: Yes Short Term Goals Goal #1: Improve L knee ROM flex 90 ext -8 Goal to be met by: 02/22/18 Progress towards Goal:: Met Goal #2: pt independent with initial HEP Goal to be met by: 02/22/18 Progress towards Goal:: Met Goal #3: Improve strength LLE knee flex/ext 3-/5 Goal to be met by: 02/22/18 Progress towards Goal:: Progressing Goal #4: Report decreased pain L knee <5/10 Goal to be met by: 02/22/18 Progress towards Goal:: Met [employer] Goals Goal #1: L knee ROM flex 100 ext 0 Goal to be met by: 03/08/18 (L knee flex 91 ext -5) Progress towards goal: Progressing Goal #2: pt amb community distances with AAD with no LOB WBAT LLE Goal to be met by: 03/08/18 Progress towards goal: Met Goal #3: pt rate pain < 2/10 with activity Goal to be met by: 03/08/18 Progress towards goal: Progressing Goal #4: pt report ability to perform daily household activities independently Goal to be met by: 03/08/18 Progress towards goal: Progressing Plan Dates of [facility] Goals: 03/08/18 Expiration date of current Insurance Approval:: 18 visits through 05/03/18 PLAN: Continue to progress with therex for strengthening, ROM as well as modalities to decreased edema LLE.
--- NOTE | 2018-02-24 15:36 | RS.OPPTDN ---
Subjective Date of Note: 02/24/18 Visit #: 8 Number of visits approved by Insurance: 18 Date of Evaluation: 02/08/18 Payer Source: Insurance Treatment Diagnosis: Rupture of anterior cruciate ligament of L knee Current Subjective/complaints:: Reports swelling increased over the weekend. States she has been using ice and trying to rest. States she had sutures removed at appointment with physician and swelling has improved slightly. *Precautions: n/a Pain Assessment - Pain Description Pain Location: left knee Current Pain Intensity: 0/10 at rest, mild to mod with activity - Treatment Modality: Electrical Stim Unattended Parameters/Method Applied: [id number] HVGC to 240p.v. 4 large pads cross current to the left knee with CP following EX. Patient Position: Supine - Heat/Cryotherapy Treatment: Cryotherapy ([id number] with Estim ) Interventions - Exercise/Activities/Manual Therapy Exercises/Activities: Sitting at edge of mat table for active left knee flexion and assisted LAQ. Performed left AP, QS, and ham sets. SLR and hip abd/add, both with 1# weigth, 10reps each. Then SLR and hip abd no weight 10reps each. SLR/VMO 2/5reps. Isometric hip add and isometric ankle inversion, both with ball 2 sets of 10 reps. Green theraband for left ankle df, inversion, and eversion. Sitting red theraband resisted ham curl, short range. Assisted onto stationary bike, pedal rocks, 9mins. Total minutes of Exercise: 23mins/32mins Manual Therapy: n/a HOME EXERCISE PROGRAM: pt given written HEP including QS, SLR, hip abd/add, towel stretch, hamstring stretch. Isometric hip add and isometric ankle inversion, both with ball. - Charges Timed Code Treatment Minutes: 23mins Total Treatment Time: 52mins Procedures billed for this date of service:: EX2, CP, Estim unattended Assessment: Patient able to progress with resistive exercise and to begin stationary bike. Patient Education: Body/Joint mechanics, Home Exercise Program, Home Safety, Activity Modification Patient demonstrates compliance with HEP?: Yes Short Term Goals Goal #1: Improve L knee ROM flex 90 ext -8 Goal to be met by: 02/22/18 Progress towards Goal:: Met Goal #2: pt independent with initial HEP Goal to be met by: 02/22/18 Progress towards Goal:: Met Goal #3: Improve strength LLE knee flex/ext 3-/5 Goal to be met by: 02/22/18 Progress towards Goal:: Progressing Goal #4: Report decreased pain L knee <5/10 Goal to be met by: 02/22/18 Progress towards Goal:: Met Alf Goals Goal #1: L knee ROM flex 100 ext 0 Goal to be met by: 03/08/18 (L knee flex 91 ext -5) Progress towards goal: Progressing Goal #2: pt amb community distances with AAD with no LOB WBAT LLE Goal to be met by: 03/08/18 Progress towards goal: Met Goal #3: pt rate pain < 2/10 with activity Goal to be met by: 03/08/18 Progress towards goal: Progressing Goal #4: pt report ability to perform daily household activities independently Goal to be met by: 03/08/18 Progress towards goal: Progressing Plan Dates of Financial Engineer Goals: 03/08/18 Expiration date of current Insurance Approval:: 03/08/18 per POC PLAN: Progress strengthening and ROM.
--- NOTE | 2018-02-26 13:20 | RS.OPPTDN ---
Subjective Date of Note: 02/26/18 Visit #: 9 Number of visits approved by Insurance: 18 Date of Evaluation: 02/08/18 Payer Source: Insurance Treatment Diagnosis: Rupture of anterior cruciate ligament of L knee Current Subjective/complaints:: Patient reports swelling continues but is slowly improving. States she is now walking without RW. *Precautions: n/a Pain Assessment - Pain Description Pain Location: left knee Current Pain Intensity: mild Interventions - Exercise/Activities/Manual Therapy Exercises/Activities: Sitting at edge of mat table for active left knee flexion and assisted LAQ. Performed left QS and ham sets. SLR and hip abd/add, both with 1# weigth, 2s/10reps each. Hip abd/add no weights. Isometric hip add and isometric ankle inversion, both with ball 2 sets of 10 reps. Green theraband for left ankle df, inversion, and eversion, 3s/10reps each. SAQ no weights, 2s/ 10reps. Red theraband resisted hip add and hip abd. Sitting red theraband resisted ham curl, short range. Isometric left knee flexion and isometric ext with knee at 90 degrees flexion, patient sitting. Assisted onto stationary bike , pedal rocks, 5mins no included in direct time. Standing ham curls, mini- squats, and partial forward lunge on left. Total minutes of Exercise: 40mins/45mins Manual Therapy: n/a HOME EXERCISE PROGRAM: pt given written HEP including QS, SLR, hip abd/add, towel stretch, hamstring stretch. Isometric hip add and isometric ankle inversion, both with ball. - Objective Findings Observations,measurements,etc.: Left knee girth measurements: Sup pole of patella 47.0cm (R 44.5cm), Mid patella 43.6cm (R 43.6cm), and tib plateau 39.0cm (R 37.6cm). Active left knee ext to neutral in long sitting, and active left knee flexion to 93 degrees in sitting. - Charges Timed Code Treatment Minutes: 40mins Total Treatment Time: 45mins Procedures billed for this date of service:: EX3 Assessment: Patient having difficulty with left knee swelling but progressing overall. Patient Education: Body/Joint mechanics, Home Exercise Program, Home Safety, Activity Modification Comments: Discussed home care of alt heat and ice to reduce left LE swelling. Also trying light compression socks. Patient demonstrates compliance with HEP?: Yes Short Term Goals Goal #1: Improve L knee ROM flex 90 ext -8 Goal to be met by: 02/22/18 Progress towards Goal:: Met Goal #2: pt independent with initial HEP Goal to be met by: 02/22/18 Progress towards Goal:: Met Goal #3: Improve strength LLE knee flex/ext 3-/5 Goal to be met by: 02/22/18 Progress towards Goal:: Progressing Goal #4: Report decreased pain L knee <5/10 Goal to be met by: 02/22/18 Progress towards Goal:: Met Mcfp Goals Goal #1: L knee ROM flex 100 ext 0 Goal to be met by: 03/08/18 (L knee flex 93, ext neutral) Progress towards goal: Progressing Goal #2: pt amb community distances with AAD with no LOB WBAT LLE Goal to be met by: 03/08/18 Progress towards goal: Met Goal #3: pt rate pain < 2/10 with activity Goal to be met by: 03/08/18 Progress towards goal: Partially Met Goal #4: pt report ability to perform daily household activities independently Goal to be met by: 03/08/18 Progress towards goal: Partially Met Plan Dates of Mcfp Goals: 03/08/18 Expiration date of current Insurance Approval:: 03/08/18 PLAN: Progress per protocol
--- NOTE | 2018-03-01 09:58 | RS.OPPTDN ---
Subjective Date of Note: 03/01/18 Visit #: 10 Number of visits approved by Insurance: 18 Date of Evaluation: 02/08/18 Payer Source: Insurance Treatment Diagnosis: Rupture of anterior cruciate ligament of L knee Current Subjective/complaints:: Reports she is seeing more progress with reduction of swelling. States she is elevating, alternating heat and ice, and using compression socks as instructed. *Precautions: n/a Pain Assessment - Pain Description Pain Location: left knee Current Pain Intensity: 0 at rest, mod with end range flexion Interventions - Exercise/Activities/Manual Therapy Exercises/Activities: Sitting at edge of mat table for active left knee flexion. Added 1 1/2# to limited LAQ. Isometric knee flexion and ext with manual resistance in sitting ABS. Performed left QS and ham sets. Added 2# to SLR 3s/5reps. Then SLR no weights and SLR/VMO. Hip abd/add. Isometric hip add and isometric ankle inversion. Green theraband for left ankle df, inversion, and eversion, 3s/10reps each. SAQ added 2#, 2s/10reps. Sitting red theraband resisted ham curl, short range. Stationary bike, pedal rocks, 5mins (not included in direct time). Standing ham curls. Leg press limited range, 30# 25reps. Ended with passive left knee flex and ext with patient in supine. Total minutes of Exercise: 35mins/40mins Manual Therapy: n/a HOME EXERCISE PROGRAM: pt given written HEP including QS, SLR, hip abd/add, towel stretch, hamstring stretch. Isometric hip add and isometric ankle inversion, both with ball. - Objective Findings Observations,measurements,etc.: Passive left knee flexion to approx 95 degrees today - Charges Timed Code Treatment Minutes: 35mins Total Treatment Time: 40mins Procedures billed for this date of service:: EX2 Assessment: Patient progressing well with strengthening exercise and with ROM of the left knee. Patient Education: Home Exercise Program Patient demonstrates compliance with HEP?: Yes Short Term Goals Goal #1: Improve L knee ROM flex 90 ext -8 Goal to be met by: 02/22/18 Progress towards Goal:: Met Goal #2: pt independent with initial HEP Goal to be met by: 02/22/18 Progress towards Goal:: Met Goal #3: Improve strength LLE knee flex/ext 3-/5 Goal to be met by: 02/22/18 Progress towards Goal:: Progressing Goal #4: Report decreased pain L knee <5/10 Goal to be met by: 02/22/18 Progress towards Goal:: Met Chcf Goals Goal #1: L knee ROM flex 100 ext 0 Goal to be met by: 03/08/18 (L knee flex 93, ext neutral) Progress towards goal: Progressing Goal #2: pt amb community distances with AAD with no LOB WBAT LLE Goal to be met by: 03/08/18 Progress towards goal: Met Goal #3: pt rate pain < 2/10 with activity Goal to be met by: 03/08/18 Progress towards goal: Partially Met Goal #4: pt report ability to perform daily household activities independently Goal to be met by: 03/08/18 Progress towards goal: Partially Met Plan Dates of Commuter Pilot Goals: 03/08/18 Expiration date of current Insurance Approval:: 03/08/18 PLAN: Progress per protocol.
== END 2018-03-03 23:59 ==
PROVIDERS: ATTEND Orthopaedic Surgery
DX: S83.512D Sprain of anterior cruciate ligament of left knee, subsequent encounter (principal); M25.562 Pain in left knee; M62.81 Muscle weakness (generalized); Z98.890 Other specified postprocedural states

== ENCOUNTER 2018-04-12 08:00 | Outpatient (RCR) | END 2018-05-03 23:59 | PROVIDERS: ATTEND Orthopaedic Surgery | DX: M25.562 Pain in left knee (principal); G89.29 Other chronic pain; Z98.890 Other specified postprocedural states ==

== ENCOUNTER 2018-05-19 08:00 | Outpatient (RCR) ==
--- NOTE | 2018-05-13 13:23 | RS.OPPTEV2 ---
Date of Note: 05/13/18 Visit #: 1 Number of visits approved by Insurance: pending, pt has a hard max # of visits of 24 visits per year. Date of Evaluation: 05/13/18 Payer Source: Insurance Date of Onset/Injury/Change in Status: 02/05/18 Surgery Performed?: Yes (ACL reconstruction) Treatment Diagnosis: s/p repair of rupture of anterior cruciate ligament of L knee History of Condition/Mechanism of Injury:: pt initially injured L knee in 2017 mag marie and underwent ACL reconstruction on 02/05/18. pt did undergo PT after surgery and has continued HEP since DC. pt has returned to work at [employer] as well. 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 She states she has been doing HEP as instructed and continues to have pain and feels like the knee "catches" at end range. Treatment Side (optional): Left *Precautions: n/a Medical History Medical History: Arthritis Surgical History: Hysterectomy, Surgical History Comments:: breast reduction, tonsilectomy, Smoking Status: Former smoker Hx Home Medications: muscle relaxer, oxycodone, nausea meds, ibuprofen Patient's Goals: Improve ROM L knee and decrease pain and swelling Pain Assessment - Pain Description Pain Location: L knee Pain Description: Aching Current Pain Intensity: 2 Worst Pain Intensity: 6 Functional Outcome Measure LE Functional Scale: 41 - G Codes & Severity Modifier G Codes & Modifier: n/a Source of G Code score: n/a Observation - Observation Posture: Forward Head, Rounded Shoulders Handedness: Right Girth Measurement Lower: L knee 49.2 cm. R knee 45.4 cm Gait - Gait Pattern General Gait Pattern Observation: Antalgic Gait Gait Comments: pt amb with antalgic gait pattern with decreased heel strike/toe off gait pattern. General Range of Motion: BUE WFL. RLE WFL's Muscle Strength: BUE 5/5. RLE 5/5. LLE hip flex 4+/5, knee flex 3-/5, ext 3-/5 , ankle DF/PF 5/5 Knee ROM: Right WFL's Knee Muscle Strength: Right WFL's - Left Knee ROM Left Knee Extension: -8 Left Knee Flexion: 98 Knee ROM Limitations: Soft Tissue Tightness, Muscle Weakness, Pain - Left Knee Strength Left Knee Extension: 3- Fair- Left Knee Flexion: 3- Fair- Palpation Palpation Findings: Tenderness Comments:: tenderness to palpation to medial incision line. Sensation - Sensation Right Upper Extremity: Intact/Normal Left Upper Extremity: Intact/Normal Right Lower Extremity: Intact/Normal Left Lower Extremity: Intact/Normal Balance - Sitting Balance Static Sitting Balance: Normal Dynamic Sitting Balance: Normal - Standing Balance Static Standing Balance: Normal Dynamic Standing Balance: Normal Interventions - Exercise/Activities/Manual Therapy Exercises/Activities: pt received AAROM with stretching at end range with flex and ext. pt received stretching in supine, prone as well as standing. Manual Therapy: n/a HOME EXERCISE PROGRAM: pt given written HEP including QS, SLR, hip abd/add, towel stretch, hamstring stretch. Isometric hip add and isometric ankle inversion, both with ball. Therabands for resistive ankle ROM and hip abd and add. - Charges Timed Code Treatment Minutes: 52 Total Treatment Time: 61 Procedures billed for this date of service:: rosanaal low, ex EVALUATION COMPLEXITY LEVEL EVALUATION COMPLEXITY LEVEL: HISTORY: Low, EXAM OF BODY SYSTEMS: Low, CLINICAL PRESENTATION: Low, CLINICAL DECISION MAKING: Medium Assessment Assessment: pt presents with edema L knee as well as decreased ROM, pain at end range of motion. pt feels a "catch" in knee when going into ext after flex stretch. pt is performing HEP independently at home. Feel pt may benefit from skilled PT for aggressive stretching of L knee flex/ext, however will be conservative with visits due to pt with hard max of 24 per year and possibility of having manipulation in the future. Patient Education: Home Exercise Program, Education of Plan of Care Rehab Potential: Good Short Term Goals Goal #1: Improve L knee ROM flex 100 ext -6 Goal to be met by: 05/20/18 Goal #2: pt independent with modified HEP Goal to be met by: 05/20/18 Goal #3: Improve strength LLE to 4-/5 Goal to be met by: 05/20/18 Goal #4: . Retail Merchandiser Goals Goal #1: L knee ROM flex 110 ext 0 Goal to be met by: 05/27/18 Goal #2: Report increased ability to squat and kneel at work to perform job duties Goal to be met by: 05/27/18 Goal #3: pt rate pain < 2/10 with activity Goal to be met by: 05/27/18 Goal #4: . Plan - Treatment to be Provided Procedures: Therapeutic Exercises, Therapeutic Activity, Gait Training, Patient Education Modalities: Electrical Stimulation, Ultrasound/Phonophoresis, Class IV Laser, Cryotherapy, Hot Packs - Treatment Plan Frequency: 2 X week Duration: 2 weeks Dates of Custodial Goals: 05/27/18 Expiration date of current Insurance Approval:: pending - Treatment Code (2) Left knee pain Code(s): M25.562 - PAIN IN LEFT KNEE Qualifiers: Chronicity: acute Qualified Code(s): M25.562 - Pain in left knee (3) Muscle weakness Code(s): M62.81 - MUSCLE WEAKNESS (GENERALIZED) (4) Rupture of anterior cruciate ligament of left knee Code(s): S83.512A - SPRAIN OF ANTERIOR CRUCIATE LIGAMENT OF LEFT KNEE, INIT Qualifiers: Encounter type: initial encounter Qualified Code(s): S83.512A - Sprain of anterior cruciate ligament of left knee, initial encounter
--- NOTE | 2018-05-20 10:35 | RS.CSNOTE ---
PT Case Note Date of Note: 05/19/18 Title of document: Hold Note: Patient presents to department today with reports of continued pain and swelling in the right knee. She reports she has consistently worked on HEP as instructed. She reports no improvement with the sharp catch in the left knee joint with end range flexion when in supine. Reports having a catch in the right knee joint in certain positions without improvement. Patient assisted with PROM and joint mobs, with patient reporting no improvement in symptoms. Following discussion with patient and evaluating PT, all agree to hold therapy at this time with patient to continue HEP. PT will contact physicians office to reports unchanged symptoms and skilled therapy not being indicated at this time. Discharge with patient referred back to physician.
== END 2018-06-03 23:59 ==
PROVIDERS: ATTEND Orthopaedic Surgery
DX: M25.562 Pain in left knee (principal); Z98.890 Other specified postprocedural states